=== PATIENT | male | born 1985 | race Two or more races ===

== ENCOUNTER 2021-01-21 15:36 | Emergency (ER) | payer SELFPAY ==
[~2021-01-21] VITALS: Ht 188 cm; Wt 127.0 kg
[2021-01-21] MEDS ORDERED: AZITHROMYCIN 250 MG TAB PO ONE (17:45)
[2021-01-21] MEDS ORDERED: cefTRIAXone SODIUM 250 MG VL IM ONE (17:45)
[2021-01-21 17:56] VITALS: BP 147/71
== END 2021-01-21 18:08 | disposition home or self-care (01) ==
LOC: ER 15:36
DX: N48.89 Other specified disorders of penis (principal); Z20.2 Contact with and (suspected) exposure to infections with a predominantly sexual mode of transmission
CPT/HCPCS: 81002; 96372; 99283; J0696